=== PATIENT | female | born 1995 | race Caucasian/White ===

== ENCOUNTER 2019-06-16 09:12 | Emergency (ER) | payer BC ==
[2019-06-16] MEDS ORDERED: Ondansetron 4 MG/2 ML SDV IVPUSH ONE ×2 (09:43→10:50)
--- NOTE | 2019-06-16 09:50 | EDM.PDOC ---
ED HPI GENERAL MEDICAL PROBLEM - General Chief Complaint: Gastrointestinal Problem Stated Complaint: VOMITING Time Seen by Provider: 06/16/19 09:27 Source of Information: Reports: Patient History Limitations: Reports: No Limitations - History of Present Illness INITIAL COMMENTS - FREE TEXT/NARRATIVE: Patient is a 23 old female who presents with complaints of nausea, vomiting, diarrhea since Sunday night. He states that she did consume alcohol on Sunday night and was fine prior to this. Ever since then she has been unable to keep any fluids down. She denies any fever, chills, or abdominal pain. Patient states that on Sunday of last week she was started on amoxicillin for a left ear infection and sore throat and is concerned because she's been unable to keep the pills down since Sunday night. She denies any ear pain or sore throat at this time. - Related Data Allergies Allergy/AdvReac Type Severity Reaction Status Date / Time No Known Allergies Allergy Verified 06/16/19 09:23 Home Meds: Home Meds Citalopram [Citalopram HBr] 20 mg PO DAILY 06/16/19 [History] Ondansetron [Zofran ODT] 4 mg PO Q6H PRN #10 tab.dis 06/16/19 [Rx] cephALEXin [Keflex] 500 mg PO Q12H #14 cap 06/16/19 [Rx] Past Medical History Psychiatric History: Reports: Anxiety, Depression - Past Surgical History HEENT Surgical History: Reports: Oral Surgery Other HEENT Surgeries/Procedures: wisdom teeth Social & Family History - Tobacco Use Smoking Status *Q: Never Smoker - Caffeine Use Caffeine Use: Reports: Coffee, Soda, Tea - Recreational Drug Use Recreational Drug Use: No ED ROS GENERAL - Review of Systems Review Of Systems: See Below Constitutional: Reports: Decreased Appetite. Denies: Fever, Chills HEENT: Reports: No Symptoms. Denies: Ear Pain, Throat Pain Respiratory: Reports: No Symptoms Cardiovascular: Reports: No Symptoms Endocrine: Reports: No Symptoms GI/Abdominal: Reports: Diarrhea, Nausea, Vomiting. Denies: Abdominal Pain : Reports: No Symptoms. Denies: Dysuria, Flank Pain, Frequency, Urgency Musculoskeletal: Reports: No Symptoms Skin: Reports: No Symptoms Neurological: Reports: No Symptoms. Denies: Dizziness, Headache Psychiatric: Reports: No Symptoms Hematologic/Lymphatic: Reports: No Symptoms Immunologic: Reports: No Symptoms ED EXAM, GI/ABD - Physical Exam Exam: See Below Exam Limited By: No Limitations General Appearance: Alert, WD/WN, No Apparent Distress Ears: Normal External Exam, Normal Canal, Normal TMs Nose: Normal Inspection, Normal Mucosa Throat/Mouth: Normal Inspection, Normal Lips, Normal Gums, Normal Oropharynx. No: Inflammation Head: Atraumatic, Normocephalic Neck: Normal Inspection, Supple, Non-Tender Respiratory/Chest: No Respiratory Distress, Lungs Clear, Normal Breath Sounds, No Accessory Muscle Use, Chest Non-Tender Cardiovascular: Normal Peripheral Pulses, Regular Rate, Rhythm, No Edema, No Murmur GI/Abdominal Exam: Normal Bowel Sounds, Soft, No Distention, No Mass, Other ( mild generalized tenderness throughout). No: Guarding, Rigid Back Exam: Normal Inspection. No: CVA Tenderness (L), CVA Tenderness (R) Neurological: Alert, Oriented, Normal Cognition Psychiatric: Normal Affect, Normal Mood Skin Exam: Warm, Dry, Intact, Normal Color, No Rash Course - Vital Signs Last Recorded V/S: Last Vital Signs Temp 97.9 F 06/16/19 09:24 Pulse 95 06/16/19 09:24 Resp 16 06/16/19 09:24 BP 157/82 H 06/16/19 09:24 Pulse Ox 96 06/16/19 09:24 - Orders/Labs/Meds Orders: Active Orders 24 hr Category Date Time Status Influenza Vaccine Charge [RC] .DISCHARGE Care 06/16/19 09:35 Active Sodium Chloride 0.9% [Normal Saline] 1,000 ml Med 06/16/19 09:45 Active IV ASDIRECTED Sodium Chloride 0.9% [Normal Saline] 1,000 ml Med 06/16/19 11:30 Active IV ASDIRECTED cefTRIAXone [Rocephin] 2 gm Med 06/16/19 11:45 Active Sodium Chloride 0.9% [Normal Saline] 100 ml IV Q24H Medication Orders Sodium Chloride (Normal Saline) 1,000 mls @ 999 mls/hr IV ASDIRECTED [facility]STHIAN Last Admin: 06/16/19 11:25 Dose: 999 mls/hr Infusion: 06/16/19 11:02 Dose: 999 mls/hr Admin: 06/16/19 10:01 Dose: 999 mls/hr Sodium Chloride (Normal Saline) 1,000 mls @ 999 mls/hr IV ASDIRECTED [facility] Last Admin: 06/16/19 11:25 Dose: 999 mls/hr Ceftriaxone Sodium 2 gm/ (Sodium Chloride) 100 mls @ 200 mls/hr IV Q24H [facility] Last Admin: 06/16/19 11:50 Dose: 200 mls/hr Labs: Laboratory Tests 06/16/19 06/16/19 06/16/19 Range/Units 10:26 10:26 11:12 WBC 11.89 H (3.98-10.04) K/mm3 RBC 4.37 (3.98-5.22) M/mm3 Hgb 13.5 (11.2-15.7) gm/dl Hct 40.9 (34.1-44.9) % MCV 93.6 (79.4-94.8) fl MCH 30.9 (25.6-32.2) pg MCHC 33.0 (32.2-35.5) g/dl RDW Std Deviation 39.1 (36.4-46.3) fL Plt Count 299 (182-369) K/mm3 MPV 9.0 L (9.4-12.3) fl Neut % (Auto) 82.7 H (34.0-71.1) % Lymph % (Auto) 10.9 L (19.3-51.7) % [place] % (Auto) 5.0 (4.7-12.5) % Eos % (Auto) 0.9 (0.7-5.8) Baso % (Auto) 0.3 (0.1-1.2) % Neut # (Auto) 9.83 H (1.56-6.13) K/mm3 Lymph # (Auto) 1.30 (1.18-3.74) K/mm3 [place] # (Auto) 0.60 H (0.24-0.36) K/mm3 Eos # (Auto) 0.11 (0.04-0.36) K/mm3 Baso # (Auto) 0.03 (0.01-0.08) K/mm3 Sodium 142 (136-145) mEq/L Potassium 3.2 L (3.5-5.1) mEq/L Chloride 102 (98-107) mEq/L Carbon Dioxide 23 (21-32) mEq/L Anion Gap 20.2 H (5-15) BUN 11 (7-18) mg/dL Creatinine 0.7 (0.55-1.02) mg/dL Est Cr Clr Drug Dosing 107.01 mL/min Estimated GFR (MDRD) > 60 (>60) mL/min BUN/Creatinine Ratio 15.7 (14-18) Glucose 87 (74-106) mg/dL Calcium 9.4 (8.5-10.1) mg/dL Total Bilirubin 0.5 (0.2-1.0) mg/dL AST 31 (15-37) U/L ALT 36 (14-59) U/L Alkaline Phosphatase 85 (46-116) U/L Total Protein 7.9 (6.4-8.2) g/dl Albumin 3.9 (3.4-5.0) g/dl Globulin 4.0 gm/dL Albumin/Globulin Ratio 1.0 (1-2) Lipase 63 L (73-393) U/L Urine Color Yellow (Yellow) Urine Appearance Clear (Clear) Urine pH 6.5 (5.0-8.0) Ur Specific [place] 1.020 (1.005-1.030) Urine Protein Negative (Negative) Urine Glucose (UA) Negative (Negative) Urine Ketones 3+ H (Negative) Urine Occult Blood Trace-lysed H (Negative) Urine Nitrite Negative (Negative) Urine Bilirubin 1+ H (Negative) Urine Urobilinogen 1.0 (0.2-1.0) Ur Leukocyte Esterase 1+ H (Negative) Urine RBC 5-10 H (0-5) /hpf Urine WBC 10-20 H (0-5) /hpf Ur Squamous Epith Cells 0-5 (0-5) /hpf Urine Bacteria Few (FEW) /hpf Urine Mucus Many H (FEW) /hpf Urine HCG, Qual (NEGATIVE) 06/16/19 Range/Units 11:12 WBC (3.98-10.04) K/mm3 RBC (3.98-5.22) M/mm3 Hgb (11.2-15.7) gm/dl Hct (34.1-44.9) % MCV (79.4-94.8) fl MCH (25.6-32.2) pg MCHC (32.2-35.5) g/dl RDW Std Deviation (36.4-46.3) fL Plt Count (182-369) K/mm3 MPV (9.4-12.3) fl Neut % (Auto) (34.0-71.1) % Lymph % (Auto) (19.3-51.7) % [place] % (Auto) (4.7-12.5) % Eos % (Auto) (0.7-5.8) Baso % (Auto) (0.1-1.2) % Neut # (Auto) (1.56-6.13) K/mm3 Lymph # (Auto) (1.18-3.74) K/mm3 [place] # (Auto) (0.24-0.36) K/mm3 Eos # (Auto) (0.04-0.36) K/mm3 Baso # (Auto) (0.01-0.08) K/mm3 Sodium (136-145) mEq/L Potassium (3.5-5.1) mEq/L Chloride (98-107) mEq/L Carbon Dioxide (21-32) mEq/L Anion Gap (5-15) BUN (7-18) mg/dL Creatinine (0.55-1.02) mg/dL Est Cr Clr Drug Dosing mL/min Estimated GFR (MDRD) (>60) mL/min BUN/Creatinine Ratio (14-18) Glucose (74-106) mg/dL Calcium (8.5-10.1) mg/dL Total Bilirubin (0.2-1.0) mg/dL AST (15-37) U/L ALT (14-59) U/L Alkaline Phosphatase (46-116) U/L Total Protein (6.4-8.2) g/dl Albumin (3.4-5.0) g/dl Globulin gm/dL Albumin/Globulin Ratio (1-2) Lipase (73-393) U/L Urine Color (Yellow) Urine Appearance (Clear) Urine pH (5.0-8.0) Ur Specific [place] (1.005-1.030) Urine Protein (Negative) Urine Glucose (UA) (Negative) Urine Ketones (Negative) Urine Occult Blood (Negative) Urine Nitrite (Negative) Urine Bilirubin (Negative) Urine Urobilinogen (0.2-1.0) Ur Leukocyte Esterase (Negative) Urine RBC (0-5) /hpf Urine WBC (0-5) /hpf Ur Squamous Epith Cells (0-5) /hpf Urine Bacteria (FEW) /hpf Urine Mucus (FEW) /hpf Urine HCG, Qual Negative (NEGATIVE) Meds: Medications Generic Name Dose Route Start Last Admin Trade Name Freq PRN Reason Stop Dose Admin Sodium Chloride 1,000 mls @ 999 mls/hr 06/16/19 09:45 06/16/19 11:25 Normal Saline IV 999 mls/hr ASDIRECTED [facility]RI[facility]AN Administration Sodium Chloride 1,000 mls @ 999 mls/hr 06/16/19 11:30 06/16/19 11:25 Normal Saline IV 999 mls/hr ASDIRECTED CRISTHIAN Administration Ceftriaxone Sodium 2 gm/ 100 mls @ 200 mls/hr 06/16/19 11:45 06/16/19 11:50 Sodium Chloride IV 200 mls/hr Q24H [facility]ST[facility]AN Administration Discontinued Medications Generic Name Dose Route Start Last Admin Trade Name Freq PRN Reason Stop Dose Admin Influenza Virus Vaccine 60 mcg 06/16/19 10:15 06/16/19 11:56 Fluzone Quad Syringe IM 06/16/19 10:16 Not Given .ONCE ONE Lorazepam 0.5 mg 06/16/19 10:59 06/16/19 11:03 Ativan IVPUSH 06/16/19 11:00 0.5 mg ONETIME ONE Administration Ondansetron HCl 4 mg 06/16/19 09:43 06/16/19 09:59 Zofran IVPUSH 06/16/19 09:44 4 mg ONETIME ONE Administration Ondansetron HCl 4 mg 06/16/19 10:50 06/16/19 10:56 Zofran IVPUSH 06/16/19 10:51 4 mg ONETIME ONE Administration Potassium Chloride 20 meq 06/16/19 11:49 06/16/19 12:28 Klor-Con M20 PO 06/16/19 11:50 20 meq ONETIME ONE Administration - Re-Assessments/Exams Free Text/Narrative Re-Assessment/Exam: Patient is a 23-year-old female who presents with complaints of nausea, vomiting , and diarrhea for approximately the last 2 days. She did drink alcohol Trip night and states that she was fine prior to this, however she has been unable to keep any fluids down since that time. Patient was being treated with amoxicillin since Sunday of last week and has been on unable to keep the pills down. On exam, bilateral TMs are normal and her throat has no erythema. I have ordered baseline lab work a CBC, CMP, lipase, and a urinalysis. We will give him a 1 L bolus of normal saline and Zofran 4 mg IV. We will then attempt oral hydration. 06/16/19 10:50 Patient continues to have nausea and states that she doesn't feel like she can take oral liquids at this time. I have ordered another dose of Zofran 4 mg IV. 06/16/19 11:00 There is a reports the patient is complaining of increased anxiety. She feels this may be contributing to her nausea and vomiting. She states she has not been able take her citalopram since she's been starting vomiting. I have ordered Ativan 0.5 mg IV to be given at this time. 06/16/19 11:46 Patient's labs are significant for mildly elevated white count at 11.89 with a mild left shift. Potassium is mildly low at 3.2 and anion gap is elevated at 20.2. Urinalysis is positive for a UTI with 1+ leukocyte esterase 10-20 WBCs and 5-10 rbc's. Patient states that she is feeling better after the medications she has received thus far. I will give her Rocephin 2 g IV for the UTI as well as KCL 20 meq PO. Patient will be discharged with a prescription for Keflex 500 mg twice daily for 7 days to cover for pyelonephritis as well as Zofran ODT 4 mg as needed for nausea. Discharge instructions as noted. Departure - Departure Time of Disposition: 12:29 Disposition: Home, Self-Care 01 Condition: Fair Clinical Impression: UTI, Urinary tract infectious disease, Gastroenteritis - Discharge Information *PRESCRIPTION DRUG MONITORING PROGRAM REVIEWED*: No *COPY OF PRESCRIPTION DRUG MONITORING REPORT IN PATIENT [place]: No Prescriptions: cephALEXin [Keflex] 500 mg PO Q12H #14 cap Ondansetron [Zofran ODT] 4 mg PO Q6H PRN #10 tab.dis PRN Reason: Nausea/Vomiting Instructions: Viral Gastroenteritis, Adult, Urinary Tract Infection, Adult Referrals: Bonnie Waddell PA-C [Primary Care Provider] - Forms: ED Department Discharge Additional Instructions: You were seen in the emergency Department today with complaints of nausea, vomiting, and diarrhea since Sunday night. Your lab work did indicate that you were dehydrated. In addition your potassium was mildly low and your urinalysis was positive for a urinary tract infection. While in the ER you did receive 2 L of IV fluids, Zofran for nausea, Ativan for anxiety, and Rocephin which is an antibiotic. A prescription for Keflex 500 mg twice daily for 7 days and Zofran 4 mg under the tongue every 6 hours as needed for nausea and vomiting has been sent to an [facility] in [facility], We recommend that you keep a clear liquid diet for at least the next 24 hours and then advance as tolerated. Avoiding dairy products, apple juice, and grape juice until your symptoms have completely resolved. If you should experience any new or worsening symptoms, please not hesitate to return to the emergency department or follow-up with your primary care provider. - My Orders Last 24 Hours: My Active Orders 06/16/19 09:35 Influenza Vaccine Charge [RC] .DISCHARGE 06/16/19 09:45 Sodium Chloride 0.9% [Normal Saline] 1,000 ml IV ASDIRECTED 06/16/19 11:30 Sodium Chloride 0.9% [Normal Saline] 1,000 ml IV ASDIRECTED 06/16/19 11:45 cefTRIAXone [Rocephin] 2 gm Sodium Chloride 0.9% [Normal Saline] 100 ml IV Q24H - Assessment/Plan Last 24 Hours: My Active Orders 06/16/19 09:35 Influenza Vaccine Charge [RC] .DISCHARGE 06/16/19 09:45 Sodium Chloride 0.9% [Normal Saline] 1,000 ml IV ASDIRECTED 06/16/19 11:30 Sodium Chloride 0.9% [Normal Saline] 1,000 ml IV ASDIRECTED 06/16/19 11:45 cefTRIAXone [Rocephin] 2 gm Sodium Chloride 0.9% [Normal Saline] 100 ml IV Q24H
[2019-06-16] MEDS: Sodium Chloride 0.9% 1,000 ML IV SCH ×2 (10:01→11:25)
[2019-06-16] MEDS ORDERED: FLU Vacc QS2019-20(6MOS+)/PF 60 MCG/0.5 ML SYRINGE IM ONE (10:15)
[2019-06-16] MEDS ORDERED: LORazepam 2 MG/ML SDV IVPUSH ONE (10:59)
[2019-06-16] MEDS ORDERED: Sodium Chloride 0.9% 1,000 ML IV SCH (11:30)
[2019-06-16] MEDS ORDERED: cefTRIAXone 2 GM in Sodium Chloride 0.9% 100 ML IV SCH (11:45)
[2019-06-16] MEDS ORDERED: Potassium Chloride 20 MEQ Tab.ER PO ONE (11:49)
== END 2019-06-16 12:42 | disposition home or self-care (01) ==
LOC: JD.ED 09:12
DX: K52.9 Noninfective gastroenteritis and colitis, unspecified (principal); N39.0 Urinary tract infection, site not specified; F32.9 Major depressive disorder, single episode, unspecified; Z79.899 Other long term (current) drug therapy
CPT/HCPCS: 36415; 80053; 81001; 81025; 83690; 85025; 87086; 96361; 96365; 96375; 96376; 99284; A9270; J0696; J2060; J2405; J7030; J7050; 87088; 99283

== ENCOUNTER 2024-10-20 14:09 | Emergency (ER) | payer OTHER ==
[2024-10-20] MEDS: Sodium Chloride 0.9% 1,000 ML IV STA ×4 (15:18→18:00)
[2024-10-20] MEDS: Ondansetron 4 MG/2 ML SDV IVPUSH ONE ×2 (15:18→19:09)
[2024-10-20 15:59] LABS: BASOPHILS PERCENT AUTO 0.2 % (0.0-1.0); EOSINOPHILS PERCENT AUTO 0.1 % (0.0-6.0); HEMATOCRIT 49.7 % (37.0-47.0); HEMOGLOBIN 16.4 gm/dl (12.0-16.0); IMMATURE GRAN ABSOLUTE AUTO 0.08 K/mm3 (0.00-0.05); IMMATURE GRAN PERCENT AUTO 0.5 % (0.0-0.4); LYMPHOCYTES ABSOLUTE AUTO 1.4 K/mm3 (1.0-4.8); LYMPHOCYTES PERCENT AUTO 9.1 % (24.0-44.0); MEAN CORPUSCULAR HEMOGLOBIN 30.5 pg (28.0-32.0); MEAN CORPUSCULAR VOLUME 92.6 fl (83.0-99.0); MEAN PLATELET VOLUME 9.2 fl (9.4-12.3); MONOCYTES ABSOLUTE AUTO 0.9 K/mm3 (0.0-0.8); MONOCYTES PERCENT AUTO 6.1 % (0.0-8.0); PLATELET COUNT,PLT 396 K/mm3 (150-400); RED BLOOD CELL COUNT 5.37 M/mm3 (4.10-5.30); WHITE BLOOD CELL COUNT,WBC 15.42 K/mm3 (3.9-11.3)
[2024-10-20] MEDS: Metoclopramide 10 MG/2 ML SDV IVPUSH ONE (16:10)
[2024-10-20] MEDS: diphenhydrAMINE 50 MG/ML SDV IVPUSH ONE (16:12)
[2024-10-20] MEDS: Sodium Chloride 0.9% 10 ML Syringe FLUSH PRN (16:14)
[2024-10-20 16:21] LABS: A/G RATIO 1.1 (1-2); ALBUMIN 4.8 g/dl (3.4-5.0); ANION GAP 26.4 (5-15); BILIRUBIN TOTAL 0.8 mg/dL (0.2-1.0); BUN/CREATININE RATIO 13.3 (14-18); C-REACTIVE PROTEIN 2.18 mg/dL (<0.30); CALCIUM 10.5 mg/dL (8.5-10.1); CREATININE 0.9 mg/dL (0.55-1.02); EST CRCL DRUG DOSING (CG) 78.93 mL/min; PROTEIN TOTAL,TP 9.2 g/dl (6.4-8.2)
[2024-10-20 16:22] LABS: POTASSIUM,K 4.4 mEq/L (3.5-5.1)
[2024-10-20] MEDS: Famotidine 20 MG/2 ML SDV IVPUSH ONE (19:10)
[2024-10-20 19:40] LABS: ANION GAP 20.9 (5-15); CREATININE 0.8 mg/dL (0.55-1.02); EST CRCL DRUG DOSING (CG) 88.79 mL/min; POTASSIUM,K 3.9 mEq/L (3.5-5.1)
[2024-10-20 20:00] LABS: CALCIUM 7.9 mg/dL (8.5-10.1)
[2024-10-20] MEDS: Sodium Chloride 0.9% 1,000 ML IV SCH (20:25)
[2024-10-20 20:35] LABS: APPEARANCE,URINE CLEAR (Clear); BILIRUBIN,URINE NEGATIVE (Negative); COLOR,URINE YELLOW (Yellow); GLUCOSE,URINE NEGATIVE (Negative); KETONES,URINE 4+ (Negative); LEUKOCYTE ESTERASE,URINE NEGATIVE (Negative); NITRITE,URINE NEGATIVE (Negative); OCCULT BLOOD,URINE 2+ (Negative); PROTEIN,URINE 2+ (Negative); UROBILINOGEN,URINE 0.2 (0.2-1.0)
[2024-10-20 20:51] LABS: BACTERIA,URINE FEW /hpf (FEW); EPITHELIAL CELLS,URINE 0-5 /hpf (0-5); MUCUS,URINE MODERATE /hpf (FEW); RBC,URINE 0-5 /hpf (0-5); WBC,URINE 0-5 /hpf (0-5)
[2024-10-20 20:52] LABS: FINE GRANULAR CASTS,URINE 0-5 /lpf (0-5); HYALINE CASTS,URINE 0-5 /lpf (0-5)
== END 2024-10-21 01:18 | disposition home or self-care (01) ==
LOC: JD.ED 14:09
DX: E86.0 Dehydration (principal); Z79.899 Other long term (current) drug therapy
CPT/HCPCS: 36415; 80048; 80053; 81001; 84703; 85025; 86140; 96361; 96374; 96375; 96376; 99284; J1200; J2405; J2765; J7030; 99283

== ENCOUNTER 2024-10-23 09:15 | Emergency (ER) | payer OTHER ==
[2024-10-23] MEDS: Sodium Chloride 0.9% 1,000 ML IV STA (10:02)
[2024-10-23] MEDS: Pantoprazole 40 MG Vial IVPUSH ONE (10:02)
[2024-10-23] MEDS: Sodium Chloride 0.9% 10 ML Syringe FLUSH PRN (10:04)
[2024-10-23 10:18] LABS: BASOPHILS ABSOLUTE AUTO 0.1 K/mm3 (0.0-0.2); BASOPHILS PERCENT AUTO 0.8 % (0.0-1.0); EOSINOPHILS ABSOLUTE AUTO 0.1 K/mm3 (0.0-0.4); EOSINOPHILS PERCENT AUTO 1.9 % (0.0-6.0); HEMATOCRIT 46.9 % (37.0-47.0); IMMATURE GRAN ABSOLUTE AUTO 0.02 K/mm3 (0.00-0.05); IMMATURE GRAN PERCENT AUTO 0.3 % (0.0-0.4); LYMPHOCYTES ABSOLUTE AUTO 1.9 K/mm3 (1.0-4.8); LYMPHOCYTES PERCENT AUTO 29.3 % (24.0-44.0); MEAN CORPUSCULAR HEMOGLOBIN 30.7 pg (28.0-32.0); MEAN CORPUSCULAR HGB CONC 34.1 g/dl (32.0-36.0); MEAN PLATELET VOLUME 9.2 fl (9.4-12.3); MONOCYTES ABSOLUTE AUTO 0.5 K/mm3 (0.0-0.8); MONOCYTES PERCENT AUTO 8.2 % (0.0-8.0); NEUTROPHILS ABSOLUTE AUTO 3.9 K/mm3 (1.8-7.7); NEUTROPHILS PERCENT AUTO 59.5 % (41.0-71.0); RED BLOOD CELL COUNT 5.21 M/mm3 (4.10-5.30); WHITE BLOOD CELL COUNT,WBC 6.48 K/mm3 (3.9-11.3)
[2024-10-23 10:22] LABS: PLATELET COUNT,PLT 320 K/mm3 (150-400)
[2024-10-23] MEDS: Iopamidol 612 MG/ML 100 ML Bottle IVPUSH ONE (10:23)
[2024-10-23] MEDS: Iopamidol 612 MG/ML 30 ML SDV IVPUSH ONE (10:23)
[2024-10-23] MEDS: Sodium Chloride 0.9% 10 ML Syringe FLUSH ONE (10:28)
[2024-10-23 10:38] LABS: ANION GAP 18.7 (5-15); BILIRUBIN TOTAL 0.9 mg/dL (0.2-1.0); BUN/CREATININE RATIO 12.9 (14-18); CREATININE 0.7 mg/dL (0.55-1.02); EST CRCL DRUG DOSING (CG) 101.48 mL/min; MAGNESIUM 1.9 mg/dL (1.8-2.4); POTASSIUM,K 2.7 mEq/L (3.5-5.1); PROTEIN TOTAL,TP 8.1 g/dl (6.4-8.2)
[2024-10-23 10:46] LABS: CALCIUM 9.8 mg/dL (8.5-10.1)
[2024-10-23] MEDS: Sodium Chloride 0.9% 1,000 ML IV SCH (11:45)
[2024-10-23] MEDS: Potassium Chloride 10 MEQ in Premix Bag 1 BAG IV SCH (11:46)
[2024-10-23] MEDS: Diatrizoate Meglumine/Diatrizoate Sodium 37% 120 ML Bottle PO ONE (12:13)
[2024-10-23] MEDS: Piperacillin/Tazobactam 4.5 GM in Sodium Chloride 0.9% 100 ML IV ONE (13:09)
== END 2024-10-23 13:47 | disposition home or self-care (01) ==
LOC: JD.ED 09:15
DX: J98.2 Interstitial emphysema (principal)
CPT/HCPCS: 36415; 71250; 71260; 74177; 80053; 83605; 83690; 83735; 84703; 85025; 96361; 96365; 96367; 96375; 99285; J2470; J2543; J3480; J7030; Q9963; Q9967; 99284